=== PATIENT | female | born 1985 | race Caucasian/White ===

== ENCOUNTER 2019-12-11 13:01 | Emergency (ER) | payer MEDICAID ==
[~2019-12-11] VITALS: Ht 152.4 cm; Wt 44.1 kg
[2019-12-11 15:57] VITALS: BP 116/76
[2019-12-11 16:07] LABS: BASOPHILS % (AUTO) 0.9 % (0.0-2.0); EOSINOPHILS % (AUTO) 2.8 % (1.0-6.0); HEMATOCRIT 37.4 % (36-46); HEMOGLOBIN 12.9 g/dL (12.0-16.0); MEAN CORPUSCULAR HEMOGLOBIN 32.9 pg (26.0-34.0); MEAN CORPUSCULAR HGB CONC 34.3 G/dL (31.0-37.0); MEAN CORPUSCULAR VOLUME 96 fL (80-100); MONOCYTES # (AUTO) 0.6 K/uL (0.1-1.0); MONOCYTES % (AUTO) 11.8 % (2.0-9.0); NEUTROPHILS # (AUTO) 2.1 K/uL (1.8-7.7); NEUTROPHILS % (AUTO) 43.5 % (40.0-70.0); PLATELET COUNT (AUTO) 324 K/uL (150-450); RED BLOOD CELL COUNT(AUTO) 3.91 MIL/uL (4.00-5.20); RED CELL DISTRIBUTION WIDTH 12.7 % (11.5-14.5)
[2019-12-11 16:28] LABS: ALANINE AMINOTRANSFERASE 42 U/L (12-78); ALBUMIN 4.2 g/dL (3.4-5.0); ALKALINE PHOSPHATASE 36 U/L (46-116); ANION GAP 10 mmol/L (8-16); ASPARTATE AMINOTRANSFERASE 45 U/L (15-37); BILIRUBIN,TOTAL 0.8 mg/dL (0.1-1.0); CALCIUM, TOTAL 9.6 mg/dL (8.8-10.5); CARBON DIOXIDE 31 mmol/L (22-29); CHLORIDE 99 mmol/L (98-107); CREATININE 0.71 mg/dL (0.60-1.30); GLOMERULAR FILTR. RATE CALC > 60 mL/min (>60); GLUCOSE,RANDOM 72 mg/dL (70-110); SODIUM SERUM 140 mmol/L (136-145); TOTAL PROTEIN, SERUM 7.7 g/dL (6.4-8.2); UREA NITROGEN, BLOOD 18 mg/dL (7-18)
[2019-12-11 16:42] LABS: POTASSIUM 2.7 mmol/L (3.5-5.1)
[2019-12-11] MEDS ORDERED: POTASSIUM CHLORIDE 10% 40 MEQ/30 ML LIQUID UDCUP PO ONE ×2 (16:45→17:05)
[2019-12-11] MEDS ORDERED: BUPR-93 PO (21:42)
== END 2019-12-11 17:38 | disposition home or self-care (01) ==
LOC: EMS 13:10
DX: F32.9 Major depressive disorder, single episode, unspecified (principal); E87.6 Hypokalemia; F17.210 Nicotine dependence, cigarettes, uncomplicated
CPT/HCPCS: 80053; 85025; 99284; G0480

== ENCOUNTER 2019-12-11 20:38 | Inpatient (IN) | payer MEDICAID, OTHER ==
[2019-12-11] MEDS ORDERED: BUPR-93 PO (21:42)
[2019-12-11] MEDS ORDERED: HALOPERIDOL 5 MG TABLET PO PRN (21:45)
[2019-12-11] MEDS ORDERED: LORazepam 2 MG TABLET PO PRN (21:45)
[2019-12-11] MEDS ORDERED: INFLUENZA VIRUS VACCINE QVS 2019-20 (3YR+)/PF 60 MCG/0.5 ML SYRINGE IM ONE (22:00)
[2019-12-11 22:10] VITALS: BP 109/69
[2019-12-12] VITALS: BP 123/84
[2019-12-12] MEDS ORDERED: BISACODYL 10 MG RECTAL RECTAL SUPPOSITORY PR PRN (02:00)
[2019-12-12] MEDS: ZOLPIDEM TARTRATE 10 MG TABLET PO PRN (02:04)
[2019-12-12] MEDS ORDERED: ONDANSETRON HCL 4 MG TABLET PO PRN (09:15)
[2019-12-12] MEDS ORDERED: GuaiFENesin/D-METHORPHAN [SUGAR-FREE] 200-20MG/10 ML SYRUP UDCUP PO PRN (09:15)
[2019-12-12] MEDS ORDERED: ACETAMINOPHEN 325 MG TABLET PO PRN (09:15)
[2019-12-12] MEDS ORDERED: NICOTINE 14 MG/24 HOUR PATCH TD PRN (09:15)
[2019-12-12] MEDS ORDERED: PETROLATUM,WHITE 28 GM JELLY TP PRN (09:15)
[2019-12-12] MEDS ORDERED: MAGNESIUM HYDROXIDE SUSPENSION 30 ML UDCUP PO PRN (09:15)
[2019-12-12] MEDS ORDERED: DOCUSATE SODIUM 100 MG CAPSULE PO PRN (09:15)
[2019-12-12] MEDS ORDERED: LOPERAMIDE HCL 2 MG CAPSULE PO PRN (09:15)
[2019-12-12] MEDS ORDERED: IBUPROFEN 400 MG TABLET PO PRN (09:15)
[2019-12-12] MEDS ORDERED: ALBUTEROL SULFATE HFA 90 MCG/PUFF 8 GM INHALER IH PRN (09:15)
[2019-12-12] MEDS ORDERED: CloNIDine HCL 0.1 MG TABLET PO PRN (09:15)
[2019-12-12 09:20] VITALS: BP 107/69
[2019-12-12] MEDS: BuPROPion HCL XL 150 MG ER TABLET PO SCH (12:37)
[2019-12-12 16:00] VITALS: BP 111/76
[2019-12-12] MEDS: ZIPRASIDONE HCL 80 MG CAPSULE PO SCH (17:15)
[2019-12-12] MEDS: MAG HYDROX/AL HYDROX/SIMETH ES 30 ML SUSPENSION UDCUP PO PRN (17:39)
[2019-12-13 00:40] VITALS: BP 102/63
[2019-12-13 08:02] LABS: ALANINE AMINOTRANSFERASE 34 U/L (12-78); ALBUMIN 3.3 g/dL (3.4-5.0); ALKALINE PHOSPHATASE 30 U/L (46-116); ANION GAP 5 mmol/L (8-16); ASPARTATE AMINOTRANSFERASE 33 U/L (15-37); BILIRUBIN,TOTAL 0.4 mg/dL (0.1-1.0); CARBON DIOXIDE 31 mmol/L (22-29); CHLORIDE 107 mmol/L (98-107); CREATININE 0.67 mg/dL (0.60-1.30); GLOMERULAR FILTR. RATE CALC > 60 mL/min (>60); GLUCOSE,RANDOM 84 mg/dL (70-110); PHOSPHORUS 3.6 mg/dL (2.5-4.9); POTASSIUM 3.8 mmol/L (3.5-5.1); SODIUM SERUM 143 mmol/L (136-145); UREA NITROGEN, BLOOD 11 mg/dL (7-18)
[2019-12-13] MEDS: BuPROPion HCL XL 150 MG ER TABLET PO SCH (08:37)
[2019-12-13 09:28] VITALS: BP 97/65
[2019-12-13 16:18] VITALS: BP 117/73
[2019-12-13] MEDS: ZIPRASIDONE HCL 80 MG CAPSULE PO SCH (16:58)
[2019-12-13] MEDS: ZOLPIDEM TARTRATE 10 MG TABLET PO PRN (21:33)
[2019-12-14 05:28] VITALS: BP 110/70
[2019-12-14 08:13] VITALS: BP 100/69
[2019-12-14] MEDS: BuPROPion HCL XL 150 MG ER TABLET PO SCH (08:31)
[2019-12-14 16:00] VITALS: BP 96/64
[2019-12-14] MEDS: ZIPRASIDONE HCL 80 MG CAPSULE PO SCH (17:20)
[2019-12-14] MEDS: ZOLPIDEM TARTRATE 10 MG TABLET PO PRN (20:46)
[2019-12-15 00:51] VITALS: BP 105/51
[2019-12-15] MEDS: BuPROPion HCL XL 150 MG ER TABLET PO SCH (08:25)
[2019-12-15] MEDS: ZIPRASIDONE HCL 80 MG CAPSULE PO SCH (16:47)
[2019-12-15 17:15] VITALS: BP 109/71
[2019-12-15] MEDS: ZOLPIDEM TARTRATE 10 MG TABLET PO PRN (22:07)
[2019-12-16 00:55] VITALS: BP 126/93
[2019-12-16] MEDS: BuPROPion HCL XL 150 MG ER TABLET PO SCH (08:29)
[2019-12-16 08:45] VITALS: BP 119/76
[2019-12-16 16:37] VITALS: BP 116/74
[2019-12-16] MEDS: ZIPRASIDONE HCL 80 MG CAPSULE PO SCH (17:07)
[2019-12-16] MEDS: MAG HYDROX/AL HYDROX/SIMETH ES 30 ML SUSPENSION UDCUP PO PRN (21:10)
[2019-12-16] MEDS: ZOLPIDEM TARTRATE 10 MG TABLET PO PRN (22:00)
[2019-12-17 01:25] VITALS: BP 106/75
[2019-12-17 08:08] VITALS: BP 108/73
[2019-12-17] MEDS: BuPROPion HCL XL 150 MG ER TABLET PO SCH (08:56)
[2019-12-17 16:07] VITALS: BP 121/76
[2019-12-17] MEDS: ZIPRASIDONE HCL 80 MG CAPSULE PO SCH (16:31)
[2019-12-17] MEDS: ZOLPIDEM TARTRATE 10 MG TABLET PO PRN (21:45)
[2019-12-18 00:31] VITALS: BP 104/67
[2019-12-18 08:29] VITALS: BP 97/58
[2019-12-18] MEDS: BuPROPion HCL XL 150 MG ER TABLET PO SCH (08:41)
[2019-12-18] MEDS: MAG HYDROX/AL HYDROX/SIMETH ES 30 ML SUSPENSION UDCUP PO PRN (12:28)
[2019-12-18 16:06] VITALS: BP 112/72
[2019-12-18] MEDS: ZIPRASIDONE HCL 80 MG CAPSULE PO SCH (16:14)
[2019-12-18] MEDS ORDERED: ZIPR80CA2 PO (18:20)
== END 2019-12-18 19:05 | disposition home or self-care (01) | DRG 753 ==
LOC: B2S 21:43
PROVIDERS: ADMIT Psychiatry & Neurology Child & Adolescent Psychiatry; ATTEND Psychiatry & Neurology Child & Adolescent Psychiatry
DX: F31.5 Bipolar disorder, current episode depressed, severe, with psychotic features (principal); F50.00 Anorexia nervosa, unspecified; R45.851 Suicidal ideations; F10.10 Alcohol abuse, uncomplicated; F12.10 Cannabis abuse, uncomplicated; F15.10 Other stimulant abuse, uncomplicated; K59.00 Constipation, unspecified; Z59.0 Homelessness; Z86.59 Personal history of other mental and behavioral disorders
CPT/HCPCS: 83735; 84100; 90686; Q0162

== ENCOUNTER 2019-12-19 08:23 | Emergency (ER) | payer MEDICAID, OTHER ==
[~2019-12-19] VITALS: Ht 152.4 cm; Wt 50.0 kg
[~2019-12-19 08:23] MED LIST: BUPR-93 PO; ZIPR80CA2 PO
[2019-12-19 09:50] VITALS: BP 131/85
== END 2019-12-19 10:00 | disposition home or self-care (01) ==
LOC: EMS 08:24
DX: F20.9 Schizophrenia, unspecified (principal); F31.9 Bipolar disorder, unspecified; F17.210 Nicotine dependence, cigarettes, uncomplicated

== ENCOUNTER 2020-10-28 00:55 | Inpatient (IN) | payer MEDICAID ==
[~2020-10-28] VITALS: Ht 162.6 cm; Wt 57.6 kg
[2020-10-28 01:29] LABS: BASOPHILS % (AUTO) 0.6 % (0.0-2.0); EOSINOPHILS % (AUTO) 1.5 % (1.0-6.0); HEMOGLOBIN 14.2 g/dL (12.0-16.0); LYMPHOCYTES % (AUTO) 22.3 % (22.0-44.0); MEAN CORPUSCULAR HEMOGLOBIN 32.8 pg (26.0-34.0); MEAN CORPUSCULAR HGB CONC 33.8 G/dL (31.0-37.0); MEAN CORPUSCULAR VOLUME 97 fL (80-100); MONOCYTES # (AUTO) 0.8 K/uL (0.1-1.0); MONOCYTES % (AUTO) 8.8 % (2.0-9.0); NEUTROPHILS % (AUTO) 66.8 % (40.0-70.0); PLATELET COUNT (AUTO) 444 K/uL (150-450); RED BLOOD CELL COUNT(AUTO) 4.33 MIL/uL (4.00-5.20); RED CELL DISTRIBUTION WIDTH 12.4 % (11.5-14.5)
[2020-10-28 01:37] LABS: ANION GAP 12 mmol/L (8-16); CALCIUM, TOTAL 9.3 mg/dL (8.8-10.5); CARBON DIOXIDE 26 mmol/L (22-29); CHLORIDE 101 mmol/L (98-107); CREATININE 0.61 mg/dL (0.60-1.30); GLOMERULAR FILTR. RATE CALC > 60 mL/min (>60); GLUCOSE,RANDOM 83 mg/dL (70-110); POTASSIUM 3.5 mmol/L (3.5-5.1); SODIUM SERUM 139 mmol/L (136-145); UREA NITROGEN, BLOOD 15 mg/dL (7-18)
[2020-10-28 01:49] LABS: ALANINE AMINOTRANSFERASE 23 U/L (12-78); ALBUMIN 4.3 g/dL (3.4-5.0); ALKALINE PHOSPHATASE 59 U/L (46-116); ASPARTATE AMINOTRANSFERASE 29 U/L (15-37); BILIRUBIN,TOTAL 0.7 mg/dL (0.1-1.0); HCG,QUANTITATIVE < 1 mIU/mL (0-6); TOTAL PROTEIN, SERUM 8.4 g/dL (6.4-8.2)
[2020-10-28] MEDS ORDERED: ACETAMINOPHEN 500 MG TABLET PO ONE (02:30)
[2020-10-28] MEDS ORDERED: HALOPERIDOL 5 MG TABLET PO PRN (03:15)
[2020-10-28 05:36] LABS: COVID AG,FIA SOURCE NASOPHARYNGEAL
[2020-10-28 09:41] VITALS: BP 104/71
[2020-10-28] MEDS: LORazepam 2 MG TABLET PO PRN (19:33)
[2020-10-28] MEDS ORDERED: ACETAMINOPHEN 650 MG/20.3 ML SOLUTION UDCUP PO PRN (20:15)
[2020-10-28] MEDS ORDERED: ACETAMINOPHEN 325 MG TABLET PO PRN ×2 (20:45→22:15)
[2020-10-28] MEDS ORDERED: MAG HYDROX/AL HYDROX/SIMETH ES 30 ML SUSPENSION UDCUP PO PRN (22:15)
[2020-10-28] MEDS ORDERED: ONDANSETRON HCL 4 MG TABLET PO PRN (22:15)
[2020-10-28] MEDS ORDERED: BACITRACIN 28 GM OINTMENT TP PRN (22:15)
[2020-10-28] MEDS ORDERED: BENZOCAINE/MENTHOL LOZENGE PO PRN (22:15)
[2020-10-28] MEDS ORDERED: ALBUTEROL SULFATE HFA 90 MCG/PUFF 8 GM INHALER IH PRN (22:15)
[2020-10-28] MEDS ORDERED: PETROLATUM,WHITE 28 GM JELLY TP PRN (22:15)
[2020-10-28] MEDS ORDERED: MAGNESIUM CITRATE 300 ML ORAL SOLUTION PO ONE (22:15)
[2020-10-28] MEDS ORDERED: LOPERAMIDE HCL 2 MG CAPSULE PO PRN (22:15)
[2020-10-28] MEDS ORDERED: CloNIDine HCL 0.1 MG TABLET PO PRN (22:15)
[2020-10-28] MEDS ORDERED: BISACODYL 5 MG EC TABLET PO PRN (22:15)
[2020-10-28] MEDS ORDERED: MAGNESIUM HYDROXIDE SUSPENSION 30 ML UDCUP PO PRN (22:15)
[2020-10-29 02:10] VITALS: BP 100/63
[2020-10-29 08:16] VITALS: BP 116/63
[2020-10-29] MEDS: DOCUSATE SODIUM 100 MG CAPSULE PO SCH (08:44)
[2020-10-29] MEDS: OMEPRAZOLE 20 MG CAPSULE PO SCH (08:44)
[2020-10-29] MEDS: BuPROPion HCL XL 150 MG ER TABLET PO SCH (09:00)
[2020-10-29] MEDS: NICOTINE 14 MG/24 HOUR PATCH TD SCH (16:54)
[2020-10-29] MEDS: ZIPRASIDONE HCL 80 MG CAPSULE PO SCH (17:00)
[2020-10-29 17:02] VITALS: BP 110/60
[2020-10-29] MEDS ORDERED: MAGNESIUM CITRATE 300 ML ORAL SOLUTION PO ONE (21:15)
[2020-10-29] MEDS: LORazepam 2 MG TABLET PO PRN (22:06)
[2020-10-29] MEDS: ZOLPIDEM TARTRATE 10 MG TABLET PO PRN (23:53)
[2020-10-30 00:33] VITALS: BP 112/63
[2020-10-30] MEDS: NICOTINE 14 MG/24 HOUR PATCH TD SCH (08:23)
[2020-10-30] MEDS: OMEPRAZOLE 20 MG CAPSULE PO SCH (08:23)
[2020-10-30] MEDS: LITHIUM CARBONATE 300 MG CAPSULE PO SCH ×2 (08:23→17:00)
[2020-10-30] MEDS: BuPROPion HCL XL 150 MG ER TABLET PO SCH (08:23)
[2020-10-30] MEDS: DOCUSATE SODIUM 100 MG CAPSULE PO SCH (08:25)
[2020-10-30] MEDS: LACTULOSE 20 GM/30 ML SOLUTION UDCUP PO PRN (08:31)
[2020-10-30 08:37] VITALS: BP 128/84
[2020-10-30] MEDS: LORazepam 2 MG TABLET PO PRN (10:09)
[2020-10-30] MEDS: ZIPRASIDONE HCL 80 MG CAPSULE PO SCH (17:00)
[2020-10-30] MEDS: ZOLPIDEM TARTRATE 10 MG TABLET PO PRN (22:13)
[2020-10-31 04:05] VITALS: BP 116/73
[2020-10-31] MEDS: DOCUSATE SODIUM 100 MG CAPSULE PO SCH (09:00)
[2020-10-31] MEDS: LITHIUM CARBONATE 300 MG CAPSULE PO SCH ×2 (09:10→18:31)
[2020-10-31] MEDS: OMEPRAZOLE 20 MG CAPSULE PO SCH (09:10)
[2020-10-31] MEDS: RisperiDONE 3 MG TABLET PO SCH ×2 (09:10→18:32)
[2020-10-31] MEDS: NICOTINE 14 MG/24 HOUR PATCH TD SCH (09:11)
[2020-10-31] MEDS: IBUPROFEN 600 MG TABLET PO PRN (17:39)
[2020-10-31] MEDS: LORazepam 2 MG TABLET PO PRN (19:21)
[2020-10-31] MEDS: ZOLPIDEM TARTRATE 10 MG TABLET PO PRN (23:02)
[2020-10-31] MEDS: LACTULOSE 20 GM/30 ML SOLUTION UDCUP PO PRN (23:11)
[2020-11-01 01:21] VITALS: BP 106/77
[2020-11-01 08:34] VITALS: BP 112/62
[2020-11-01] MEDS: OMEPRAZOLE 20 MG CAPSULE PO SCH (09:47)
[2020-11-01] MEDS: NICOTINE 14 MG/24 HOUR PATCH TD SCH (09:47)
[2020-11-01] MEDS: RisperiDONE 3 MG TABLET PO SCH ×2 (09:47→16:32)
[2020-11-01] MEDS: DOCUSATE SODIUM 100 MG CAPSULE PO SCH (09:47)
[2020-11-01] MEDS: LITHIUM CARBONATE 300 MG CAPSULE PO SCH ×2 (09:47→16:32)
[2020-11-01] MEDS: IBUPROFEN 600 MG TABLET PO PRN ×2 (10:37→20:16)
[2020-11-01 16:13] VITALS: BP 115/83
[2020-11-01] MEDS: LORazepam 2 MG TABLET PO PRN (20:16)
[2020-11-01] MEDS: ZOLPIDEM TARTRATE 10 MG TABLET PO PRN (22:20)
[2020-11-02] MEDS: IBUPROFEN 600 MG TABLET PO PRN ×3 (02:34→22:05)
[2020-11-02 03:13] VITALS: BP 107/58
[2020-11-02] MEDS: RisperiDONE 3 MG TABLET PO SCH ×2 (09:27→16:13)
[2020-11-02] MEDS: NICOTINE 14 MG/24 HOUR PATCH TD SCH (09:27)
[2020-11-02] MEDS: LITHIUM CARBONATE 300 MG CAPSULE PO SCH ×2 (09:28→16:15)
[2020-11-02] MEDS: OMEPRAZOLE 20 MG CAPSULE PO SCH (09:28)
[2020-11-02] MEDS: DOCUSATE SODIUM 100 MG CAPSULE PO SCH (09:28)
[2020-11-02] MEDS: LORazepam 2 MG TABLET PO PRN ×2 (16:07→22:05)
[2020-11-02 16:22] VITALS: BP 105/77
[2020-11-02] MEDS: LACTULOSE 20 GM/30 ML SOLUTION UDCUP PO PRN (18:42)
[2020-11-02] MEDS: ZOLPIDEM TARTRATE 10 MG TABLET PO PRN (22:05)
[2020-11-03 01:20] VITALS: BP 106/62
[2020-11-03 04:10] VITALS: BP 128/73
[2020-11-03] MEDS: IBUPROFEN 600 MG TABLET PO PRN (04:17)
[2020-11-03] MEDS: LORazepam 2 MG TABLET PO PRN (04:17)
[2020-11-03 08:39] VITALS: BP 109/60
[2020-11-03] MEDS: NICOTINE 14 MG/24 HOUR PATCH TD SCH (10:00)
[2020-11-03] MEDS: LITHIUM CARBONATE 300 MG CAPSULE PO SCH (10:00)
[2020-11-03] MEDS: RisperiDONE 3 MG TABLET PO SCH (10:00)
[2020-11-03] MEDS: OMEPRAZOLE 20 MG CAPSULE PO SCH (10:00)
[2020-11-03] MEDS: DOCUSATE SODIUM 100 MG CAPSULE PO SCH (10:00)
== END 2020-11-03 13:00 | disposition home or self-care (01) | DRG 750 ==
LOC: EMS 00:56 → B3A 04:00 → B2S 11-01 11:30
PROVIDERS: ADMIT Psychiatry & Neurology Psychiatry; ATTEND Psychiatry & Neurology Psychiatry
DX: F25.9 Schizoaffective disorder, unspecified (principal); F10.10 Alcohol abuse, uncomplicated; F41.9 Anxiety disorder, unspecified; G47.00 Insomnia, unspecified; K21.9 Gastro-esophageal reflux disease without esophagitis; K59.00 Constipation, unspecified; R45.851 Suicidal ideations; Z20.822 Contact with and (suspected) exposure to COVID-19; Y90.9 Presence of alcohol in blood, level not specified; Z87.891 Personal history of nicotine dependence; Z59.0 Homelessness
CPT/HCPCS: 87426; 99285; G0480

== ENCOUNTER 2023-12-10 11:38 | Emergency (ER) | payer MEDICAID ==
[~2023-12-10] VITALS: Ht 152.4 cm; Wt 86.4 kg
[~2023-12-10 11:38] MED LIST changes: +BUPR-50 PO; -BUPR-93 PO
[2023-12-10 11:50] VITALS: TEMP 98.4
[2023-12-10] MEDS ORDERED: METF-1211 PO (11:55)
[2023-12-10 12:06] LABS: GLUCOMETER DEV NAME(LOC) ER.6; GLUCOSE,POINT OF CARE 86 MG/DL (70-110)
[2023-12-10 12:22] LABS: BASOPHILS % (AUTO) 0.6 % (0.0-2.0); EOSINOPHILS % (AUTO) 2.1 % (1.0-6.0); HEMATOCRIT 37.6 % (36-46); HEMOGLOBIN 12.5 g/dL (12.0-16.0); LYMPHOCYTES # (AUTO) 2.4 K/uL (1.0-4.8); LYMPHOCYTES % (AUTO) 34.5 % (22.0-44.0); MEAN CORPUSCULAR HEMOGLOBIN 30.8 pg (26.0-34.0); MEAN CORPUSCULAR HGB CONC 33.3 G/dL (31.0-37.0); MEAN CORPUSCULAR VOLUME 92 fL (80-100); MONOCYTES # (AUTO) 0.4 K/uL (0.1-1.0); MONOCYTES % (AUTO) 6.3 % (2.0-9.0); NEUTROPHILS # (AUTO) 3.9 K/uL (1.8-7.7); NEUTROPHILS % (AUTO) 56.5 % (40.0-70.0); PLATELET COUNT (AUTO) 427 K/uL (150-450); RED BLOOD CELL COUNT(AUTO) 4.08 MIL/uL (4.00-5.20); RED CELL DISTRIBUTION WIDTH 13.9 % (11.5-14.5)
[2023-12-10 12:35] LABS: ANION GAP 12 mmol/L (8-16); CALCIUM, TOTAL 8.7 mg/dL (8.8-10.5); CARBON DIOXIDE 25 mmol/L (22-29); CHLORIDE 103 mmol/L (98-107); CREATININE 0.71 mg/dL (0.60-1.30); GLOMERULAR FILTR. RATE CALC > 60 mL/min (>60); GLUCOSE,RANDOM 91 mg/dL (70-110); POTASSIUM 3.8 mmol/L (3.5-5.1); SODIUM SERUM 140 mmol/L (136-145); UREA NITROGEN, BLOOD 11 mg/dL (7-18)
[2023-12-10 12:43] LABS: ALANINE AMINOTRANSFERASE 58 U/L (12-78); ALBUMIN 3.8 g/dL (3.4-5.0); ALKALINE PHOSPHATASE 86 U/L (46-116); ASPARTATE AMINOTRANSFERASE 47 U/L (15-37); BILIRUBIN,TOTAL 0.2 mg/dL (0.1-1.0); HCG,QUANTITATIVE < 1 mIU/mL (0-6); LIPASE 42 U/L (16-77); TOTAL PROTEIN, SERUM 7.8 g/dL (6.4-8.2)
[2023-12-10 14:07] LABS: APPEARANCE,URINE CLEAR (CLEAR); BILIRUBIN,URINE NEGATIVE (NEGATIVE); COLOR,URINE LIGHT YELLOW (YELLOW); GLUCOSE, URINE (UA) NEGATIVE (NEGATIVE); KETONES,URINE NEGATIVE (NEGATIVE); LEUKOCYTE ESTERASE ,URINE NEGATIVE (NEGATIVE); NITRATE,URINE NEGATIVE (NEGATIVE); OCCULT BLOOD,URINE NEGATIVE (NEGATIVE); PROTEIN,URINE NEGATIVE (NEGATIVE); SPECIFIC GRAVITIY, URINE 1.023 (1.003-1.030); UROBILINOGEN,URINE <=1.0 mg/dL (<=1.0)
[2023-12-10] MEDS: ONDANSETRON HCL 4 MG TABLET PO ONE (15:48)
[2023-12-10 16:45] VITALS: BP 132/80; PULSE 78; RESP 16
[2023-12-10] MEDS ORDERED: ONDA-104 PO (16:46)
== END 2023-12-10 17:00 | disposition home or self-care (01) ==
LOC: EMS 11:38
DX: R11.2 Nausea with vomiting, unspecified (principal); F41.9 Anxiety disorder, unspecified; N80.9 Endometriosis, unspecified; E11.9 Type 2 diabetes mellitus without complications; F20.9 Schizophrenia, unspecified; F31.9 Bipolar disorder, unspecified; F17.210 Nicotine dependence, cigarettes, uncomplicated
CPT/HCPCS: 99283; 80053; 81003; 82962; 83690; 84702; 85025; 36415; Q0162